=== PATIENT | female | born 1985 ===

== ENCOUNTER 2019-08-26 13:40 | Inpatient (IN) ==
[2019-08-26] MEDS ORDERED: Al Hydrox/Mg Hydrox/Simet LIQ 30 ML UDC PO PRN (19:42)
[2019-08-27] MEDS: Vitamin THERAPEUTIC TAB PO SCH (08:29)
[2019-08-27] MEDS: Nicotine PATCH 14 MG/24 HR PATCH TRANSDERM SCH (08:29)
[2019-08-27] MEDS: NORGESTREL PO SCH (12:23)
[2019-08-27] MEDS: ETHINYL ESTRADIOL PO SCH (12:23)
[2019-08-28 07:43] LABS: ABS Eosinophils 0.3 10^3/ul (0-0.6); ABS Lymphocytes 1.6 10^3/ul (1.0-4.8); ABS Monocytes 0.5 10^3/ul (0-0.8); Eosinophil % 5.6 %; Hematocrit 37 % (35-47); Hemoglobin 12.8 g/dL (12.0-16.0); Lymphocyte % 28.2 %; Mean Corpuscular HGB Conc 34 g/dL (31-36); Mean Corpuscular Hemoglobin 32 pg (27-31); Mean Corpuscular Volume 93 fL (80-97); Platelet Count 175 10^3/uL (150-450); Red Blood Count 4.01 10^6 /uL (3.70-4.87); Red Cell Distribution Width 13 % (10-15); White Blood Count 5.6 10^3/uL (3.5-10.8)
[2019-08-28] MEDS: Nicotine PATCH 14 MG/24 HR PATCH TRANSDERM SCH (08:12)
[2019-08-28] MEDS: Vitamin THERAPEUTIC TAB PO SCH (08:13)
[2019-08-28] MEDS: NORGESTREL PO SCH (08:14)
[2019-08-28] MEDS: ETHINYL ESTRADIOL PO SCH (08:14)
[2019-08-28 08:47] LABS: TSH (Thyroid Stimulating Horm) 0.75 mcIU/mL (0.34-5.60)
[2019-08-28 08:53] LABS: ALT 9 U/L (7-52); AST 11 U/L (13-39); Albumin 3.9 g/dL (3.2-5.2); Albumin/Globulin Ratio 1.6 (1-3); Alkaline Phosphatase 45 U/L (34-104); Anion Gap 4 mmol/L (2-11); BUN/Creatinine Ratio 18.9 (8-20); Blood Urea Nitrogen 14 mg/dL (6-24); CO2 Carbon Dioxide 27 mmol/L (22-32); Calcium 8.9 mg/dL (8.6-10.3); Chloride 108 mmol/L (101-111); Cholesterol 130 mg/dL; EGFR African American 109.4 (>60); EGFR Non-African American 90.4 (>60); Globulin 2.4 g/dL (2-4); Glucose 93 mg/dL (70-100); HDL Cholesterol 51.5 mg/dL; LDL Cholesterol 72 mg/dL; Potassium 4.3 mmol/L (3.5-5.0); Sodium 139 mmol/L (135-145); Total Protein 6.3 g/dL (6.4-8.9); Triglycerides 34 mg/dL
[2019-08-28 08:56] LABS: HCG Pregnancy < 0.60 mIU/mL
[2019-08-29] MEDS: Vitamin THERAPEUTIC TAB PO SCH (07:48)
[2019-08-29] MEDS: Nicotine PATCH 14 MG/24 HR PATCH TRANSDERM SCH (07:49)
[2019-08-29] MEDS: ETHINYL ESTRADIOL PO SCH (11:35)
[2019-08-29] MEDS: NORGESTREL PO SCH (11:35)
[2019-08-29 14:34] LABS: Urine Appearance Cloudy; Urine Bilirubin Negative (Negative); Urine Blood Negative (Negative); Urine Color Yellow; Urine Glucose Negative (Negative); Urine Ketones Negative (Negative); Urine Nitrite Negative (Negative); Urine Protein Negative (Negative); Urine Urobilinogen Negative (Negative)
[2019-08-29 15:25] LABS: Urine Benzodiazepine Screen None Detected (None Detect); Urine Opiates Screen None Detected (None Detect)
[2019-08-30] MEDS: NORGESTREL PO SCH (08:15)
[2019-08-30] MEDS: ETHINYL ESTRADIOL PO SCH (08:15)
[2019-08-30] MEDS: Nicotine PATCH 14 MG/24 HR PATCH TRANSDERM SCH (08:15)
[2019-08-30] MEDS: Vitamin THERAPEUTIC TAB PO SCH (08:17)
[2019-08-30] MEDS: Nicotine GUM 2MG FRUIT FLAVOR PO PRN (22:55)
[2019-08-31] MEDS: Vitamin THERAPEUTIC TAB PO SCH (08:25)
[2019-08-31] MEDS: Nicotine PATCH 14 MG/24 HR PATCH TRANSDERM SCH (08:26)
[2019-08-31] MEDS: NORGESTREL PO SCH (09:14)
[2019-08-31] MEDS: ETHINYL ESTRADIOL PO SCH (09:14)
[2019-09-01] MEDS: Nicotine GUM 2MG FRUIT FLAVOR PO PRN (07:48)
[2019-09-01] MEDS: Nicotine PATCH 14 MG/24 HR PATCH TRANSDERM SCH (08:42)
[2019-09-01] MEDS: NORGESTREL PO SCH (08:43)
[2019-09-01] MEDS: ETHINYL ESTRADIOL PO SCH (08:43)
[2019-09-01] MEDS: Vitamin THERAPEUTIC TAB PO SCH (08:43)
[2019-09-01] MEDS: Nystatin TOP POWDER 15 GM BTL TOPICAL SCH (21:07)
[2019-09-02] MEDS: Vitamin THERAPEUTIC TAB PO SCH (08:24)
[2019-09-02] MEDS: ETHINYL ESTRADIOL PO SCH (08:26)
[2019-09-02] MEDS: NORGESTREL PO SCH (08:26)
[2019-09-02] MEDS: Nicotine PATCH 14 MG/24 HR PATCH TRANSDERM SCH (09:59)
[2019-09-02] MEDS: Nystatin TOP POWDER 15 GM BTL TOPICAL SCH ×2 (10:02→21:15)
[2019-09-03] MEDS: ETHINYL ESTRADIOL PO SCH (08:00)
[2019-09-03] MEDS: NORGESTREL PO SCH (08:00)
[2019-09-03] MEDS: Vitamin THERAPEUTIC TAB PO SCH (08:00)
[2019-09-03] MEDS: Nicotine PATCH 14 MG/24 HR PATCH TRANSDERM SCH (08:03)
[2019-09-03] MEDS: Nystatin TOP POWDER 15 GM BTL TOPICAL SCH (09:13)
== END 2019-09-03 16:09 | disposition home or self-care (01) | DRG 753 ==
LOC: BSU 15:43
PROVIDERS: ADMIT Psychiatry & Neurology Psychiatry; ATTEND Psychiatry & Neurology Psychiatry